=== PATIENT | female | born 1985 | race African-American/Black ===

== ENCOUNTER 2016-12-21 16:57 | Inpatient (IN) | payer OTHER ==
[2016-12-21 18:07] LABS: ROM Internal QC QC Line Present
[2016-12-21] MEDS ORDERED: Buffered Lidocaine 0.9% SYRIN* 5 ML/SYR SYRINGE ONE (18:36)
[2016-12-21] MEDS ORDERED: Penicillin G Potassium IV* 5 MILLION.UNITS VIAL ONE (18:36)
[2016-12-21 18:56] LABS: Hematocrit 42 % (35-47); Hemoglobin 14.5 g/dl (12.0-16.0); Mean Corpuscular HGB Conc 35 g/dl (31-36); Mean Corpuscular Hemoglobin 30 pg (27-31); Mean Corpuscular Volume 87 fL (80-97); Mean Platelet Volume 9 um3 (7.4-10.4); Red Blood Count 4.85 10^6/ul (4.0-5.4); Red Cell Distribution Width 14 % (10.5-15); White Blood Count 12.5 10^3/ul (3.5-10.8)
[2016-12-21] MEDS ORDERED: Acetaminophen TAB* 325 MG PO PRN (20:34)
[2016-12-21] MEDS ORDERED: Witch Hazel PAD* JAR TOPICAL PRN (20:34)
[2016-12-21] MEDS ORDERED: Dibucaine 1% 28.35 GM TUBE PR PRN (20:34)
[2016-12-21] MEDS: Ibuprofen TAB* 600 MG PO PRN (20:57)
[2016-12-21] MEDS ORDERED: Lidocaine 1% MPF* 2 ML VIAL ONE (22:11)
[2016-12-22] MEDS: Ibuprofen TAB* 600 MG PO PRN ×4 (02:59→22:31)
[2016-12-22 07:07] LABS: Hematocrit 35 % (35-47); Hemoglobin 11.9 g/dl (12.0-16.0); Mean Corpuscular HGB Conc 35 g/dl (31-36); Mean Corpuscular Hemoglobin 30 pg (27-31); Mean Corpuscular Volume 86 fL (80-97); Mean Platelet Volume 8 um3 (7.4-10.4); Red Cell Distribution Width 14 % (10.5-15); White Blood Count 16.8 10^3/ul (3.5-10.8)
[2016-12-22] MEDS ORDERED: Ferrous Gluconate TAB* 324 MG TAB PO SCH (09:00)
[2016-12-22] MEDS: Docusate CAP* 100 MG PO SCH ×4 (09:25→22:31)
--- NOTE | 2016-12-22 17:10 | PTEDU ---
Patient Name: ADIA ARMENTA ADIA ARMENTA selected video: Never Ever Shake a Baby to view on 12/22/2016 at 5:08:38 PM from [facility] [id number]
--- NOTE | 2016-12-22 18:56 | PTEDU ---
Patient Name: ADIA ARMENTA ADIA ARMENTA selected video: Follow Me Mum: [facility] 2016 [facility] 6:54:43 [id number]
[2016-12-23] MEDS: Ibuprofen TAB* 600 MG PO PRN ×2 (08:29→14:40)
[2016-12-23] MEDS: Docusate CAP* 100 MG PO SCH ×2 (08:29→14:40)
[2016-12-23] MEDS ORDERED: Influenza VAC *QUAD* 2017-18* 0.5 ML SYRINGE IM ONE (19:20)
[2016-12-23 20:05] VITALS: BP 175/73
== END 2016-12-23 20:40 | DRG 774 ==
LOC: MCHOBOUT 16:57 → MCHOB 18:30
PROVIDERS: ADMIT Nurse Practitioner; ATTEND Nurse Practitioner
PROC: 10E0XZZ Delivery of Products of Conception, External Approach (ICD-10-PCS; principal; 2016-12-21)
PROC: 4A1HXCZ Monitoring of Products of Conception, Cardiac Rate, External Approach (ICD-10-PCS; 2016-12-21)
PROC: 0HQ9XZZ Repair Perineum Skin, External Approach (ICD-10-PCS; 2016-12-21)
PROC: 3E0234Z Introduction of Serum, Toxoid and Vaccine into Muscle, Percutaneous Approach (ICD-10-PCS; 2016-12-23)
DX: O48.0 Post-term pregnancy (principal); O98.32 Other infections with a predominantly sexual mode of transmission complicating childbirth; Z37.0 Single live birth; O99.824 Streptococcus B carrier state complicating childbirth; Z3A.40 40 weeks gestation of pregnancy; Z88.8 Allergy status to other drugs, medicaments and biological substances; A60.00 Herpesviral infection of urogenital system, unspecified; O70.0 First degree perineal laceration during delivery; O16.5 Unspecified maternal hypertension, complicating the puerperium; Z23 Encounter for immunization
CPT/HCPCS: 36415; 84112; 85025; 85027; 86850; 86900; 86901; 90686; A9270-GY; J2540